=== PATIENT | male | born 1995 | race Caucasian/White ===

== ENCOUNTER 2016-10-29 19:08 | Emergency (ER) | payer BC ==
[2016-10-29 19:38] VITALS: BP 147/62; PULSE 62; RESP 18; TEMP 98.4; O2SAT 97
[2016-10-29] MEDS ORDERED: AMOX/CLAVUL 400MG/5ML PREPACK BTL TAKEHOME ONE (20:11)
--- NOTE | 2016-10-29 20:15 | EDPHY ---
General Narrative: CHIEF COMPLAINT: Sore throat, painful tongue HISTORY OF PRESENT ILLNESS: 2 days of sore throat and pain on the right side of his tongue. He feels there is an ulcer there. He has no hoarseness or difficulty swallowing. He does have some painful swallowing. No fever or chills. No asymmetry of his throat. No cough or congestion. No chest pain or shortness of breath. Worse with any intake by mouth. Improves when NPO. No abdominal or urinary complaints. No other associated complaints or modifying factors. REVIEW OF SYSTEMS: Ten systems reviewed and are negative unless otherwise noted in the HPI EXAMINATION General Appearance: Alert, no distress Head: normocephalic, atraumatic Eyes: Pupils equal and round, no conjunctival pallor or injection ENT, Mouth: Normal voice without hoarseness. Mucous membranes moist Report there is an aphthous ulcer on the right portion of the tongue. The tonsils are symmetric and without erythema , purulence or edema. Mild posterior erythema. Neck: Normal inspection, supple, non-tender Respiratory: Lungs are clear to auscultation Cardiovascular: Regular rate and rhythm Gastrointestinal: Abdomen is soft and nontender Skin: Warm and dry, no rash Extremities: Nontender, no pedal edema Psychiatric: Mood and affect normal MDM: 8:10 p.m. abscess also on the right side of the tongue. There is no evidence of parapharyngeal abscess. There is no edema of the mouth. No abnormality of the floor of the mouth. No erythema of the posterior pharynx. Discharged home with medications as discussed. Follow up with primary care physician. I discussed the nature of this and the likelihood of viral illness that will resolve in 7-10 days without intervention. discharge home with treatment as listed. Follow-up as needed. ER precautions discussed. SUPERVISION: This patient was independently evaluated without the aide of supervising physician. - History Smoking Status: Never smoked - Objective Vital Signs: Initial Vital Signs Temperature (C) 98.4 F 10/29/16 19:15 Heart Rate 62 10/29/16 19:15 Respiratory Rate 18 10/29/16 19:15 Blood Pressure 147/62 H 10/29/16 19:15 O2 Sat (%) 97 10/29/16 19:15 O2 Delivery Mode Room Air Allergies/Adverse Reactions: No Known Allergies Allergy (Unverified 10/29/16 19:34) Home Medications: Medication Instructions Recorded Amoxicillin/Clavulanate Pot 875 mg PO BID #14 tab 10/29/16 [Augmentin 875 MG TAB (*)] Lidocaine 2% Viscous 10 ml MM Q6-8PRN PRN #100 ml 10/29/16 predniSONE 40 mg PO DAILY #10 tab 10/29/16 Medications Given: Discontinued Medications Amoxicillin/Clavulanate Potassium (Augmentin 400mg/5ml Prepack) 1 btl TAKEHOME EDNOW ONE PRN Reason: Protocol Stop: 10/29/16 20:12 Last Admin: 10/29/16 20:32 Dose: Not Given Departure - Departure Disposition: Home, Routine, Self-Care Clinical Impression: Aphthous ulcer of tongue Pharyngitis Qualifiers: Pharyngitis/tonsillitis etiology: other specified organisms Qualifier Code: ( J02.8) Acute pharyngitis due to other specified organisms Condition: Good Instructions: Oral Mucositis (ED), Pharyngitis (ED) Additional Instructions: follow-up with ENT later next week. Return to the ER for any unilateral swelling of the tonsils or hoarseness Referrals: NONE *PRIMARY CARE P,. [Primary Care Provider] - As per Instructions Alix Briggs MD [Medical Doctor] - As per Instructions Prescriptions: Amoxicillin/Clavulanate Pot [Augmentin 875 MG TAB (*)] 875 mg PO BID #14 tab Lidocaine 2% Viscous 10 ml MM Q6-8PRN PRN #100 ml PRN Reason: Pain, Mild predniSONE 40 mg PO DAILY #10 tab
== END 2016-10-29 20:31 | disposition home or self-care (01) ==
DX: K12.0 Recurrent oral aphthae (principal); J02.8 Acute pharyngitis due to other specified organisms; B96.89 Other specified bacterial agents as the cause of diseases classified elsewhere